=== PATIENT | male | born 1960 | race Caucasian/White ===

== ENCOUNTER 2018-08-31 20:48 | Emergency (ER) | payer SELFPAY ==
[2018-08-31] MEDS ORDERED: NORMAL SALINE 1000 ML 1,000 ML IV ONE (22:02)
--- NOTE | 2018-08-31 22:07 | ER Document Report ---
ED General - General Chief Complaint: Passed Out Prior to Arrival Stated Complaint: FALL/HEAD ABRASION Time Seen by Provider: 08/31/18 22:02 Primary Care Provider: PATITO MURRAY MD [NO LOCAL MD] - Follow up in 3-5 days KELL BERGERON MD [ACTIVE STAFF] - Follow up in 3-5 days Notes: Patient is a 57-year-old male that presents to the emergency department for chief complaint of syncopal episode. Patient reports that yesterday he was outside, and was walking to his dog, got onto the boat he said he felt euphoric, and then woke up on the floor, he believes that it was brief, he felt somewhat lightheaded before as well. He had another episode where something similar happened this afternoon, or he got lightheaded and euphoric as he puts it and fell and he did not hit his face on the grass. He denies having any headache before or after these episodes, he states over the past 3 months he has been having some tremor in his right arm, which has been evaluated by his primary care physician, he was told he had hypothyroidism, started on thyroid pills and it seemed to make it worse so he stopped taking these. He is also on prednisone that he takes twice daily has been on this for a long time, for rheumatoid arthritis. He denies any history of cardiac issues such as CHF, CAD or cardiac dysrhythmias. Denies family history of sudden cardiac . He does report that he had a heart cath last year that was clean according to him, and no findings. Past Medical History: Hypothyroidism Past Surgical History: Denies surgical history Social History: Denies tobacco, alcohol or drug use. Family History: Reviewed and noncontributory for presenting illness Allergies: Reviewed, see documented allergy list. REVIEW OF SYSTEMS: Other than noted above, the 12 point review of systems was reviewed with the pat ient and were negative, all pertinent findings are included in the HPI. PHYSICAL EXAMINATION: Vital signs reviewed, nursing noted reviewed. GENERAL: Well-appearing, well-nourished and in no acute distress. HEAD: Superficial abrasions noted to the forehead and the nasal bridge. EYES: Eyes appear normal, extraocular movements intact, sclera anicteric, conjunctiva are normal. ENT: nares patent, no septal hematoma, oropharynx clear without exudates. Moist mucous membranes. No tenderness over the nasal bones. NECK: Normal range of motion, supple without lymphadenopathy LUNGS: Breath sounds clear to auscultation bilaterally and equal. No wheezes rales or rhonchi. HEART: Regular rate and rhythm without murmurs ABDOMEN: Soft, nontender, normoactive bowel sounds. No rebound, guarding, or rigidity. No masses appreciated. EXTREMITIES: Nontender, good range of motion, no pitting or edema. NEUROLOGICAL: Moves all extremities spontaneously Motor and sensory grossly intact on exam. There is a minimal right-sided resting tremor in the right upper extremity. Patient states that he has been having this for several months, when his hand is resting on something. The tremor goes away with intention. PSYCH: Normal mood, normal affect. SKIN: Warm, Dry, normal turgor, no rashes or lesions noted on exposed skin TRAVEL OUTSIDE OF THE [place] IN LAST 30 DAYS: No - Related Data Allergies/Adverse Reactions: No Known Allergies Allergy (Verified 08/31/18 21:03) Past Medical History - Social History Smoking Status: Former Smoker Frequency of alcohol use: None Drug Abuse: None Family History: Reviewed & Not Pertinent Patient has suicidal ideation: No Patient has homicidal ideation: No Renal/ Medical History: Denies: Hx Peritoneal Dialysis - Immunizations Hx Diphtheria, Pertussis, Tetanus Vaccination: Yes - one and one half yrs ago Physical Exam - Vital signs Vitals: Temp Pulse Resp BP Pulse Ox 98.4 F 70 16 153/96 H 95 08/31/18 21:02 08/31/18 21:02 08/31/18 21:02 08/31/18 21:02 08/31/18 21:02 Course - Re-evaluation Re-evalutation: Patient seen and examined vital signs reviewed. Laboratory data and/or imaging were ordered as appropriate for the patient's presenting symptoms and complaint, with consideration of any critical or life threatening conditions that may be associated with their obtained history and exam as noted above. Patient was treated with IV fluid bolus Results were reviewed when available and demonstrated unremarkable work-up, TSH was slightly elevated, but T4 was normal, CT imaging of the head was negative, and d-dimer negative as well, troponin negative, EKG demonstrated sinus rhythm with right bundle branch block, which the patient reported having a history of in the past, and that is why they did his heart cath about 8 months ago which she reported was completely clean and negative, no intervention at that time. The patient was re-evaluated and was stable, did not have any further lightheadedness, or any syncopal symptoms. I discussed with him at length the results and the workup that was performed today. I do feel he falls into a low risk category for syncope, however I did offer observation in the hospital to the patient as a option in shared decision making, versus outpatient follow-up with cardiology. I also discussed with him his resting tremor and referred him to neurology. I also encouraged him to use his CPAP mask for his V[employer]CTOR which he is currently noncompliant with. He told me that he was going to "try and figure out what caused this at home" I strongly advised him not to try and make himself pass out at home after he told me this. Evaluation was most consistent with syncope episode, facial abrasions, (given tetanus update vaccination) Results were discussed with the patient at this point, after careful considerati on I feel that that patient can be discharged from the emergency department, the patient was educated treatments and reasons to return to the emergency department based on their presumed diagnosis as noted above, they were advised to followup with a primary care physician in 2-3 days. Patient was agreeable to plan of care. *Note is created using voice recognition software and may contain spelling, syntax or grammatical errors. Laboratory 08/31/18 08/31/18 08/31/18 19:58 19:58 19:58 WBC 7.8 RBC 5.64 H Hgb 16.9 Hct 48.9 MCV 87 MCH 29.9 MCHC 34.5 RDW 15.0 H Plt Count 187 Seg Neutrophils % 62.9 Lymphocytes % 24.7 Monocytes % 11.1 Eosinophils % 0.7 Basophils % 0.6 Absolute Neutrophils 4.9 Absolute Lymphocytes 1.9 Absolute Monocytes 0.9 Absolute Eosinophils 0.1 Absolute Basophils 0.0 D-Dimer Sodium 138.4 Potassium 4.7 Chloride 105 Carbon Dioxide 23 Anion Gap 10 BUN 21 H Creatinine 0.98 Est GFR ( Amer) > 60 Est GFR (Non-Af Amer) > 60 Glucose 91 POC Glucose Calcium 9.1 Total Bilirubin 0.8 Direct Bilirubin 0.4 Neonat Total Bilirubin Not Reportable Neonat Direct Bilirubin Not Reportable Neonat Indirect Bili Not Reportable AST 31 ALT 28 Alkaline Phosphatase 40 Creatine Kinase 75 CK-MB (CK-2) 1.10 Troponin I < 0.012 Total Protein 7.5 Albumin 4.3 TSH Free T4 Urine Color Urine Appearance Urine pH Ur Specific Hudson Urine Protein Urine Glucose (UA) Urine Ketones Urine Blood Urine Nitrite Urine Bilirubin Urine Urobilinogen Ur Leukocyte Esterase Urine WBC (Auto) Urine RBC (Auto) Squamous Epi Cells Auto Urine Mucus (Auto) Urine Ascorbic Acid 08/31/18 08/31/18 08/31/18 19:58 19:58 21:10 WBC RBC Hgb Hct MCV MCH MCHC RDW Plt Count Seg Neutrophils % Lymphocytes % Monocytes % Eosinophils % Basophils % Absolute Neutrophils Absolute Lymphocytes Absolute Monocytes Absolute Eosinophils Absolute Basophils D-Dimer 0.30 Sodium Potassium Chloride Carbon Dioxide Anion Gap BUN Creatinine Est GFR ( Amer) Est GFR (Non-Af Amer) Glucose POC Glucose 90 Calcium Total Bilirubin Direct Bilirubin Neonat Total Bilirubin Neonat Direct Bilirubin Neonat Indirect Bili AST ALT Alkaline Phosphatase Creatine Kinase CK-MB (CK-2) Troponin I Total Protein Albumin TSH 8.92 H Free T4 1.11 Urine Color Urine Appearance Urine pH Ur Specific Hudson Urine Protein Urine Glucose (UA) Urine Ketones Urine Blood Urine Nitrite Urine Bilirubin Urine Urobilinogen Ur Leukocyte Esterase Urine WBC (Auto) Urine RBC (Auto) Squamous Epi Cells Auto Urine Mucus (Auto) Urine Ascorbic Acid 08/31/18 23:18 WBC RBC Hgb Hct MCV MCH MCHC RDW Plt Count Seg Neutrophils % Lymphocytes % Monocytes % Eosinophils % Basophils % Absolute Neutrophils Absolute Lymphocytes Absolute Monocytes Absolute Eosinophils Absolute Basophils D-Dimer Sodium Potassium Chloride Carbon Dioxide Anion Gap BUN Creatinine Est GFR ( Amer) Est GFR (Non-Af Amer) Glucose POC Glucose Calcium Total Bilirubin Direct Bilirubin Neonat Total Bilirubin Neonat Direct Bilirubin Neonat Indirect Bili AST ALT Alkaline Phosphatase Creatine Kinase CK-MB (CK-2) Troponin I Total Protein Albumin TSH Free T4 Urine Color YELLOW Urine Appearance CLEAR Urine pH 5.0 Ur Specific [place] 1.019 Urine Protein NEGATIVE Urine Glucose (UA) NEGATIVE Urine Ketones NEGATIVE Urine Blood NEGATIVE Urine Nitrite NEGATIVE Urine Bilirubin NEGATIVE Urine Urobilinogen NEGATIVE Ur Leukocyte Esterase NEGATIVE Urine WBC (Auto) 2 Urine RBC (Auto) 1 Squamous Epi Cells Auto <1 Urine Mucus (Auto) OCC Urine Ascorbic Acid NEGATIVE Head CT 08/31/18 22:55 IMPRESSION: 1. No acute intracranial findings. Chest X-Ray 08/31/18 22:56 IMPRESSION: Negative chest copyright 2011 [employer]- All Rights Reserved - Vital Signs Vital signs: Temp Pulse Resp BP Pulse Ox 98.1 F 70 18 148/79 H 94 09/01/18 00:01 08/31/18 21:02 09/01/18 00:01 09/01/18 00:01 09/01/18 00:01 - Laboratory Result Diagrams: 08/31/18 19:58 08/31/18 19:58 Laboratory results interpreted by me: 08/31/18 08/31/18 08/31/18 19:58 19:58 19:58 RBC 5.64 H RDW 15.0 H BUN 21 H TSH 8.92 H - EKG Interpretation by Me Additional EKG results interpreted by me: EKG demonstrates sinus rhythm with ventricular rate of 75 bpm, left axis devia tion, presence of right bundle branch block, QTC 456 ms, no ST elevation or T wave inversions noted. Discharge - Discharge Clinical Impression: Syncope Qualifiers: Syncope type: unspecified Qualified Code(s): R55 - Syncope and collapse Facial abrasion Qualifiers: Encounter type: initial encounter Qualified Code(s): S00.81XA - Abrasion of other part of head, initial encounter Condition: Stable Disposition: HOME, SELF-CARE Instructions: Syncopal Episode ([facility]) Additional Instructions: Please do not hesitate to return to the emergency department if you develop chest pain, shortness of breath or repeat of your symptoms, I do want you to follow-up with a site supervisor as well as neurology, and referrals have been listed with your paperwork today. If you have any further concerns, or worsening of symptoms, please return. Referrals: KELL BERGERON MD [ACTIVE STAFF] - Follow up in 3-5 days PATITO MURRAY MD [NO LOCAL MD] - Follow up in 3-5 days
[2018-08-31 22:18] LABS: ABSOLUTE EOSINOPHILS # (AUTO) 0.1 10^3/uL (0.0-0.6); ABSOLUTE LYMPHOCYTES (AUTO) 1.9 10^3/uL (0.5-4.7); ABSOLUTE MONOCYTES (AUTO) 0.9 10^3/uL (0.1-1.4); ABSOLUTE NEUT (AUTO) 4.9 10^3/uL (1.7-8.2); BASOPHILS % (AUTO) 0.6 % (0-2); EOSINOPHILS % (AUTO) 0.7 % (0-6); HEMATOCRIT 48.9 % (37.9-51.0); HEMOGLOBIN 16.9 g/dL (13.5-17.0); LYMPHOCYTES % (AUTO) 24.7 % (13-45); MEAN CORPUSCULAR HEMOGLOBIN 29.9 pg (27.0-33.4); MEAN CORPUSCULAR HGB CONC 34.5 g/dL (32.0-36.0); MEAN CORPUSCULAR VOLUME 87 fl (80-97); MONOCYTES % (AUTO) 11.1 % (3-13); PLATELET COUNT 187 10^3/uL (150-450); RED BLOOD COUNT 5.64 10^6/uL (4.35-5.55); SEGMENTED NEUTROPHILS % (AUTO) 62.9 % (42-78); TOTAL CELLS COUNTED % (AUTO) 100 %; WHITE BLOOD COUNT 7.8 10^3/uL (4.0-10.5)
[2018-08-31 22:36] LABS: ALANINE AMINOTRANSFERASE 28 U/L (21-72); ALBUMIN 4.3 g/dL (3.5-5.0); ALKALINE PHOSPHATASE 40 U/L (38-126); ANION GAP 10 (5-19); ASPARTATE AMINO TRANSFERASE 31 U/L (17-59); BILIRUBIN,DIRECT 0.4 mg/dL (0.0-0.4); BILIRUBIN,TOTAL 0.8 mg/dL (0.2-1.3); BLOOD UREA NITROGEN 21 mg/dL (7-20); CALCIUM 9.1 mg/dL (8.4-10.2); CARBON DIOXIDE 23 mmol/L (22-30); CHLORIDE 105 mmol/L (98-107); CREATINE KINASE 75 U/L (55-170); GLUCOSE 91 mg/dL (75-110); POTASSIUM 4.7 mmol/L (3.6-5.0); SODIUM 138.4 mmol/L (137-145); TOTAL PROTEIN 7.5 g/dL (6.3-8.2)
--- NOTE | 2018-08-31 22:36 | EKG REPORT ---
SEVERITY:- ABNORMAL ECG - ATRIAL FIBRILLATION CAN NOT SINUS WITH ARTIFACTS, REC REPEAT EKG RBBB AND LAFB PROBABLE LEFT VENTRICULAR HYPERTROPHY : Confirmed by: Greg Gonsalves 31-Aug-2018 22:35:43
[2018-08-31 22:57] LABS: TROPONIN I < 0.012 ng/mL
--- NOTE | 2018-08-31 23:28 | RADIOLOGY REPORT (SQ) ---
EXAM DESCRIPTION: [facility]: CT HEAD WITHOUT IV CONTRAST CLINICAL HISTORY: 57 years Male; fall, head injury, syncope TECHNIQUE: Noncontrast CT head. All CT scans at this facility use dose modulation, iterative reconstruction, and/or weight based dosing when appropriate to reduce radiation dose to as low as reasonably achievable. COMPARISON: None. FINDINGS: Ramirez matter, white matter, ventricles, and cisterns are within normal limits. No acute hemorrhage or mass effect. 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 No sinus air-fluid levels. Mastoids are clear. No acute calvarial fractures. IMPRESSION: 1. No acute intracranial findings.
--- NOTE | 2018-08-31 23:29 | RADIOLOGY REPORT (SQ) ---
EXAM DESCRIPTION: XR CHEST 1 VIEW COMPLETED DATE/TME: 08/31/2018 22:56 CLINICAL HISTORY: 57 years, Male, syncope COMPARISON: None. NUMBER OF VIEWS: 1 TECHNIQUE: Portable chest LIMITATIONS: None. FINDINGS: Heart size normal. Lungs clear. No pneumothorax IMPRESSION: Negative chest copyright 2011 [employer]- All Rights Reserved
[2018-08-31 23:41] LABS: APPEARANCE,URINE CLEAR; BILIRUBIN,URINE NEGATIVE (NEGATIVE); COLOR,URINE YELLOW; GLUCOSE, URINE NEGATIVE (NEGATIVE); KETONES,URINE NEGATIVE (NEGATIVE); LEUKOCYTE ESTERASE,URINE NEGATIVE (NEGATIVE); NITRITE,URINE NEGATIVE (NEGATIVE); PROTEIN,URINE NEGATIVE (NEGATIVE); URINE SPECIFIC GRAVITY 1.019; UROBILINOGEN,URINE NEGATIVE mg/dL (<2.0)
[2018-08-31] MEDS ORDERED: DIPH/PERTUSS(ACELL)/TETANUS VAC/PF 0.5 ML SYR (>=10YO) IM ONE (23:44)
[2018-08-31 23:50] LABS: FREE T4 (FREE THYROXINE) 1.11 ng/dL (0.78-2.19)
[2018-09-01 00:04] LABS: THYROID STIMULATING HORMONE 8.92 uIU/mL (0.47-4.68)
[2018-09-01 00:47] VITALS: BP 148/79
== END 2018-09-01 00:48 | disposition home or self-care (01) ==
LOC: ER 20:48
DX: R55 Syncope and collapse (principal); S00.81XA Abrasion of other part of head, initial encounter; X58.XXXA Exposure to other specified factors, initial encounter; E03.9 Hypothyroidism, unspecified; T50.906A Underdosing of unspecified drugs, medicaments and biological substances, initial encounter; Z91.128 Patient's intentional underdosing of medication regimen for other reason; Z91.14 Patient's other noncompliance with medication regimen; R25.1 Tremor, unspecified; G47.33 Obstructive sleep apnea (adult) (pediatric); Z91.19 Patient's noncompliance with other medical treatment and regimen; M06.9 Rheumatoid arthritis, unspecified; I45.10 Unspecified right bundle-branch block; Z79.52 Long term (current) use of systemic steroids; Z87.891 Personal history of nicotine dependence; Z23 Encounter for immunization
CPT/HCPCS: 93005; 99284; 96360; 90471; 36415; 84439; 82553; 82962; 82550; 84443; 85025; 80053; 81001; 84484; 85379; 71045; 70450; 90715; 93010; J7030